=== PATIENT | male | born 1945 | race Caucasian/White ===

== ENCOUNTER → 2017-09-19 | Outpatient (REF) | LOC: ZLAB.WCH 08:59 | DX: Z01.89 Encounter for other specified special examinations (principal) ==

== ENCOUNTER → 2017-12-30 | Outpatient (REF) ==
[~2017-12-30] MED LIST: ADVIL200 MG PO; ALEVE 220MG220 MG PO; CIPRO 500MG TA500 MG PO; COMPAZINE 110 MG/TAB PO; MULTIPLE VITAMI1 CAP PO; PRILOSEC 20MG20 MG PO; PRINIVIL40 MG PO; RESTORIL30 MG PO; SAW PALMETTO 101 SGL PO; TEGRETOL 2200 MG/TA1 PO; TENORMIN100 MG PO; TRILEPTAL600 MG PO; ZOFRAN8 MG PO
== END ==
LOC: ZLAB.WCH 08:40
DX: Z01.89 Encounter for other specified special examinations (principal)